=== PATIENT | male | born 1995 | race Caucasian/White ===

== ENCOUNTER 2017-12-23 21:02 | Emergency (ER) | payer BC ==
[~2017-12-23] VITALS: Ht 167.6 cm; Wt 77.0 kg
[2017-12-23] MEDS ORDERED: ACETAMINOPHEN 325MG TABLET PO ONE (21:45)
[2017-12-23] MEDS ORDERED: LEVETIRACETAM 500MG PREMIX 100 ML IV ONE (21:45)
[2017-12-23] MEDS ORDERED: SODIUM CHLORIDE 0.9% 1,000 ML IV ONE (21:45)
[2017-12-23 22:41] LABS: BASOPHILS % 0.9 % (0.0-2.0); EOSINOPHILS % 3.2 % (0.0-5.0); HEMATOCRIT. 43.4 % (42.0-52.0); HEMOGLOBIN. 15.1 g/dL (14.0-18.0); LYMPHOCYTES % 26.2 % (20.0-50.0); MEAN CORPUSCULAR HEMOGLOBIN 30.1 pg (28.0-32.0); MEAN CORPUSCULAR VOLUME 86.5 fL (80.0-94.0); MEAN PLATELET VOLUME 8.8 fl (7.4-10.4); MONOCYTES % 7.2 % (2.0-8.0); NEUTROPHILS % 62.5 % (40.0-76.0); PLATELET 234 x1000/uL (130-400); RED BLOOD CELL COUNT 5.01 mill/uL (4.7-6.1); RED CELL DISTRIBUTION WIDTH 13.1 % (11.6-14.6)
[2017-12-23 22:45] LABS: CHLORIDE 105 mEq/L (98-107)
[2017-12-23 22:50] LABS: ETHANOL BLOOD < 10 mg/dL
[2017-12-23 22:54] LABS: CREATINE KINASE 283 IU/L (39-308)
[2017-12-23 23:01] LABS: CARBAMAZEPINE < 0.5 ug/mL (4-12); INR 1.1; PHENOBARBITAL < 2.1 ug/mL (15.0-40.0); PROTHROMBIN TIME 11.4 sec (9.1-11.1); VALPROIC ACID < 3.0 ug/mL (50-100)
[2017-12-24 01:30] VITALS: BP 126/71
[2017-12-24 02:07] LABS: CANNABINOID URINE SCREEN PRESUMTIVE POSITIVE (NEGATIVE); METHADONE URINE SCREEN NEGATIVE (NEGATIVE); OPIATES URINE SCREEN NEGATIVE (NEGATIVE); PHENCYCLIDINE URINE SCREEN NEGATIVE (NEGATIVE)
[2017-12-24 02:08] LABS: *AMPHETAMINES SCREEN URINE NEGATIVE (NEGATIVE); *BARBITURATES SCREEN URINE NEGATIVE (NEGATIVE); *BENZODIAZEPINES SCREEN URINE NEGATIVE (NEGATIVE); *COCAINE SCREEN URINE NEGATIVE (NEGATIVE)
== END 2017-12-24 01:53 | disposition home or self-care (01) ==
LOC: ER 21:56
DX: K14.6 Glossodynia (principal); R56.9 Unspecified convulsions; K13.1 Cheek and lip biting
CPT/HCPCS: 36415; 80053; 80156; 80165; 80184; 80185; 80305; 82550; 84443; 84484; 85025; 85610; 96365; 99284; G0482; J1953; J7030; Z7610

== ENCOUNTER 2018-05-25 13:48 | Emergency (ER) | payer SELFPAY ==
[~2018-05-25] VITALS: Ht 170.2 cm; Wt 75.0 kg
[2018-05-25 14:05] VITALS: BP 152/100
== END 2018-05-25 16:31 | disposition left against medical advice (07) ==
LOC: ER 13:57
DX: Z53.21 Procedure and treatment not carried out due to patient leaving prior to being seen by health care provider (principal)

== ENCOUNTER 2019-05-16 14:28 | Emergency (ER) | payer SELFPAY ==
[~2019-05-16] VITALS: Ht 172.7 cm; Wt 73.0 kg
[2019-05-16 14:31] VITALS: BP 113/93
== END 2019-05-16 16:55 | disposition left against medical advice (07) ==
LOC: ER 14:37
DX: Z53.21 Procedure and treatment not carried out due to patient leaving prior to being seen by health care provider (principal)

== ENCOUNTER 2020-03-18 09:26 | Inpatient (IN) | payer SELFPAY ==
[~2020-03-18] VITALS: Ht 170.2 cm; Wt 62.1 kg
[2020-03-18] MEDS ORDERED: LEVETIRACETAM 1000MG PREMIX 100 ML IV ONE (10:00)
[2020-03-18 10:51] LABS: CLARITY URINE CLEAR (CLEAR); COLOR URINE YELLOW (YELLOW); KETONES URINE TRACE (NEGATIVE); LEUKOCYTE ESTERASE URINE NEGATIVE (NEGATIVE); NITRITE URINE NEGATIVE (NEGATIVE); OCCULT BLOOD URINE 1+ (NEGATIVE); PROTEIN URINE 1+ (NEGATIVE); UROBILINOGEN URINE 0.2 E.U./dL (0.2-1.0)
[2020-03-18 11:17] LABS: *AMPHETAMINES SCREEN URINE NEGATIVE (NEGATIVE); *BARBITURATES SCREEN URINE NEGATIVE (NEGATIVE); *BENZODIAZEPINES SCREEN URINE NEGATIVE (NEGATIVE); *COCAINE SCREEN URINE NEGATIVE (NEGATIVE); METHADONE URINE SCREEN NEGATIVE (NEGATIVE)
[2020-03-18 11:18] LABS: CANNABINOID URINE SCREEN PRESUMTIVE POSITIVE (NEGATIVE); OPIATES URINE SCREEN NEGATIVE (NEGATIVE); PHENCYCLIDINE URINE SCREEN NEGATIVE (NEGATIVE)
[2020-03-18 11:39] LABS: HEMATOCRIT. 40.1 % (42.0-52.0); HEMOGLOBIN. 13.6 g/dL (14.0-18.0); MEAN CORPUSCULAR HEMOGLOBIN 29.9 pg (28.0-32.0); MEAN CORPUSCULAR VOLUME 88.4 fL (80.0-94.0); MEAN PLATELET VOLUME 8.4 fl (7.4-10.4); PLATELET 208 x1000/uL (130-400); RED BLOOD CELL COUNT 4.53 mill/uL (4.7-6.1); RED CELL DISTRIBUTION WIDTH 13.7 % (11.6-14.6)
[2020-03-18 11:47] LABS: CHLORIDE 111 mEq/L (98-107)
[2020-03-18 11:52] LABS: ETHANOL BLOOD < 10 mg/dL
[2020-03-18] MEDS ORDERED: ACETAMINOPHEN 325MG TABLET PO ONE (12:00)
[2020-03-18] MEDS ORDERED: ACETAMINOPHEN 650MG SUPP PR ONE (12:00)
[2020-03-18 12:07] LABS: CARBAMAZEPINE < 0.5 ug/mL (4-12); PHENOBARBITAL < 2.1 ug/mL (15.0-40.0); VALPROIC ACID < 3.0 ug/mL (50-100)
[2020-03-18] MEDS ORDERED: LORAZEPAM 2MG/ML CPJ IV PRN (14:30)
[2020-03-18] MEDS ORDERED: HALOPERIDOL LACTATE 5MG/ML VIAL IM PRN (14:30)
[2020-03-18 15:16] LABS: PLATELET ESTIMATE NORMAL
[2020-03-18] MEDS: DEXT 5%/0.45% NACL 1000ML 1,000 ML IV SCH (18:40)
[2020-03-18] MEDS ORDERED: LEVETIRACETAM 500MG PREMIX 100 ML IV SCH (22:00)
[2020-03-18 22:45] VITALS: BP 112/60
[2020-03-19] VITALS: BP 92/47
[2020-03-19 04:00] VITALS: BP 104/59
[2020-03-19] MEDS: DEXT 5%/0.45% NACL 1000ML 1,000 ML IV SCH ×2 (07:35→08:36)
[2020-03-19 08:00] VITALS: BP 117/68
[2020-03-19] MEDS ORDERED: LEVETIRACETAM 500MG PREMIX 100 ML IV SCH (09:00)
[2020-03-19 10:01] LABS: BASOPHILS % 0.6 % (0.0-2.0); EOSINOPHILS % 0.5 % (0.0-5.0); HEMATOCRIT. 37.8 % (42.0-52.0); LYMPHOCYTES % 13.9 % (20.0-50.0); MEAN CORPUSCULAR HEMOGLOBIN 30.4 pg (28.0-32.0); MEAN CORPUSCULAR VOLUME 88.1 fL (80.0-94.0); MEAN PLATELET VOLUME 7.8 fl (7.4-10.4); MONOCYTES % 7.1 % (2.0-8.0); NEUTROPHILS % 77.9 % (40.0-76.0); PLATELET 183 x1000/uL (130-400); RED BLOOD CELL COUNT 4.29 mill/uL (4.7-6.1); RED CELL DISTRIBUTION WIDTH 13.6 % (11.6-14.6)
[2020-03-19 10:59] LABS: CHLORIDE 110 mEq/L (98-107)
[2020-03-19 12:05] VITALS: BP 111/78
[2020-03-19 16:01] VITALS: BP 130/54
[2020-03-19] MEDS ORDERED: KEPP500 MT (16:09)
[2020-03-19 16:28] VITALS: BP 130/54
== END 2020-03-19 17:26 | disposition home or self-care (01) | DRG 53 ==
LOC: ER 09:37 → 3WST 13:47 → EDBEDREQTM 13:56 → EDBEDREQ 13:56 → SUPCPDRO 14:13 → ENRESERV 20:42
PROVIDERS: ADMIT Internal Medicine; ATTEND Internal Medicine
DX: G40.909 Epilepsy, unspecified, not intractable, without status epilepticus (principal); D64.9 Anemia, unspecified; F12.10 Cannabis abuse, uncomplicated; R41.0 Disorientation, unspecified; Z91.14 Patient's other noncompliance with medication regimen; Z79.899 Other long term (current) drug therapy
CPT/HCPCS: 36415; 71045; 80053; 80156; 80165; 80184; 80185; 80305; 80320; 81003; 82962; 83735; 85025; 99285; J1630; J1953; J2060; G0480

== ENCOUNTER 2020-04-13 12:06 | Emergency (ER) | payer SELFPAY ==
[~2020-04-13] VITALS: Ht 175.3 cm; Wt 71.0 kg
[~2020-04-13 12:06] MED LIST: KEPP500 MT
[2020-04-13] MEDS ORDERED: SODIUM CHLORIDE 0.9% 1,000 ML IV ONE (12:45)
[2020-04-13] MEDS ORDERED: LORAZEPAM 2MG/ML CPJ IV ONE ×3 (12:45→20:00)
[2020-04-13] MEDS ORDERED: LEVETIRACETAM 500MG PREMIX 100 ML IV ONE ×2 (12:45→15:15)
[2020-04-13 13:13] LABS: HEMATOCRIT. 41.2 % (42.0-52.0); HEMOGLOBIN. 13.3 g/dL (14.0-18.0); MEAN CORPUSCULAR HEMOGLOBIN 29.6 pg (28.0-32.0); MEAN CORPUSCULAR VOLUME 91.9 fL (80.0-94.0); MEAN PLATELET VOLUME 8.4 fl (7.4-10.4); PLATELET 208 x1000/uL (130-400); RED BLOOD CELL COUNT 4.48 mill/uL (4.7-6.1); RED CELL DISTRIBUTION WIDTH 13.8 % (11.6-14.6)
[2020-04-13 13:24] LABS: CHLORIDE 112 mEq/L (98-107)
[2020-04-13 13:30] LABS: ETHANOL BLOOD < 10 mg/dL
[2020-04-13 14:32] LABS: PLATELET ESTIMATE NORMAL
[2020-04-13] MEDS ORDERED: HALOPERIDOL LACTATE 5MG/ML VIAL IM ONE (20:00)
[2020-04-13 21:00] VITALS: BP 116/53
[2020-04-13] MEDS ORDERED: KEPP500 MT (21:29)
== END 2020-04-13 22:41 | disposition home or self-care (01) ==
LOC: ER 12:19
DX: G40.909 Epilepsy, unspecified, not intractable, without status epilepticus (principal); I49.9 Cardiac arrhythmia, unspecified; Z98.890 Other specified postprocedural states
CPT/HCPCS: 36415; 70450; 71045; 80053; 80320; 82140; 82962; 84443; 85025; 93005; 96365; 96366; 96375; 99285; J1953; J2060; J7030; Z7610; G0480

== ENCOUNTER 2020-05-29 03:56 | Emergency (ER) | payer SELFPAY ==
[~2020-05-29] VITALS: Ht 177.8 cm; Wt 80.0 kg
[2020-05-29] MEDS ORDERED: SODIUM CHLORIDE 0.9% 1,000 ML IV ONE (04:15)
[2020-05-29] MEDS ORDERED: LEVETIRACETAM 1000MG PREMIX 100 ML IV ONE (04:15)
[2020-05-29 04:42] LABS: BASOPHILS % 0.7 % (0.0-2.0); EOSINOPHILS % 0.8 % (0.0-5.0); HEMATOCRIT. 41.7 % (42.0-52.0); HEMOGLOBIN. 13.8 g/dL (14.0-18.0); LYMPHOCYTES % 9.1 % (20.0-50.0); MEAN CORPUSCULAR HEMOGLOBIN 29.5 pg (28.0-32.0); MEAN CORPUSCULAR VOLUME 88.9 fL (80.0-94.0); MEAN PLATELET VOLUME 7.9 fl (7.4-10.4); NEUTROPHILS % 85.4 % (40.0-76.0); PLATELET 244 x1000/uL (130-400); RED BLOOD CELL COUNT 4.69 mill/uL (4.7-6.1); RED CELL DISTRIBUTION WIDTH 13.1 % (11.6-14.6)
[2020-05-29 04:51] LABS: CHLORIDE 108 mEq/L (98-107)
[2020-05-29 04:56] LABS: ETHANOL BLOOD < 10 mg/dL
[2020-05-29 05:06] LABS: CARBAMAZEPINE < 0.5 ug/mL (4-12); PHENOBARBITAL < 2.1 ug/mL (15.0-40.0); VALPROIC ACID < 3.0 ug/mL (50-100)
[2020-05-29 09:10] VITALS: BP 115/60
== END 2020-05-29 09:20 | disposition home or self-care (01) ==
LOC: ER 03:56
DX: G40.909 Epilepsy, unspecified, not intractable, without status epilepticus (principal)
CPT/HCPCS: 36415; 70450; 80053; 80156; 80165; 80184; 80185; 80320; 82962; 85025; 93005; 96365; 99285; J1953; J7030; G0480